=== PATIENT | female | born 1950 | race Two or more races ===

== ENCOUNTER 2022-11-15 07:57 | Inpatient (IN) | payer OTHER ==
[~2022-11-15] VITALS: Ht 160 cm; Wt 65.8 kg
[2022-11-15] MEDS ORDERED: GLUMETZA500 MG PO (08:52)
[2022-11-15] MEDS ORDERED: ATORVASTATIN CA20 MG PO (08:53)
[2022-11-15] MEDS ORDERED: GABAPE PO (08:53)
[2022-11-15] MEDS ORDERED: COZAAR100 MG PO (08:53)
[2022-11-15] MEDS ORDERED: DOXA PO (08:54)
[2022-11-15] MEDS ORDERED: CARVEDILOL6.25 M1 PO (08:54)
[2022-11-28] MEDS ORDERED: DOXAZOSIN MESYLA2 MG (10:04)
[2022-11-28] MEDS ORDERED: GABAPENTIN800 M1 (10:05)
[2022-11-28] MEDS ORDERED: AKTOB5 ML (10:05)
[2022-11-30] MEDS ORDERED: OXYC1TAB9 PO (06:45)
[2022-11-30] MEDS ORDERED: INTEGRA PLUS C1 EACH PO (06:45)
[2022-11-30] MEDS ORDERED: BACTRIM DS TAB1 EACH PO (06:45)
[2022-11-30] MEDS ORDERED: XARELTO10 MG PO (06:45)
== END 2022-11-30 14:12 | DRG 470 ==
LOC: ADM 09:15 → EDSTATUS 11-21 09:15 → SURH 11-21 09:15 → CIR.AMB 11-21 09:15 → SURH 11-21 10:30 → O/R 11-28 06:54 → SURH 11-28 06:54
PROVIDERS: ADMIT Orthopaedic Surgery Sports Medicine; ATTEND Orthopaedic Surgery Sports Medicine
PROC: 0SRD0J9 Replacement of Left Knee Joint with Synthetic Substitute, Cemented, Open Approach (ICD-10-PCS; principal; 2022-11-28 16:30)
DX: M17.12 Unilateral primary osteoarthritis, left knee (principal)

== ENCOUNTER 2022-11-25 06:26 | Outpatient (CLI) | payer OTHER ==
[~2022-11-25 06:26] MED LIST: ATORVASTATIN CA20 MG PO; CARVEDILOL6.25 M1 PO; COZAAR100 MG PO; DOXA PO; GABAPE PO; GLUMETZA500 MG PO
== END 2022-11-25 06:34 | disposition home or self-care (01) ==
LOC: LAB 06:26
PROVIDERS: ATTEND Orthopaedic Surgery Sports Medicine
DX: Z20.822 Contact with and (suspected) exposure to COVID-19 (principal)

== ENCOUNTER → 2023-10-02 08:00 | Outpatient (CLI) | payer OTHER ==
[~2023-10-02] VITALS: Ht 160 cm; Wt 68.9 kg
[~2023-10-02 08:00] MED LIST changes: +AKTOB5 ML; +BACTRIM DS TAB1 EACH PO; +CARVEDILOL12.5 M1; +CHLORTHALIDONE 25 MG; +DOXAZOSIN MESYLA2 MG; +GABAPENTIN800 M1; +INTEGRA PLUS C1 EACH PO; +OXYC1TAB9 PO; +XARELTO10 MG PO; +[UNRECOGNIZED DRUG - OTHER]
[2023-10-02 08:16] LABS: URINE APPEARANCE Clear; URINE BILIRRUBIN Negative (NEGATIVE); URINE BLOOD Small; URINE COLOR Yellow; URINE GLUCOSE Negative (NEGATIVE); URINE KETONE Negative (NEGATIVE); URINE LEUKOCYTE Trace; URINE NITRATE Negative; URINE PROTEIN Negative (NEGATIVE); URINE UROBILINOGEN 0.2 E.U./dl
[2023-10-02 08:18] LABS: URINE BACTERIA 18.8 uL (0.0-1933); URINE EPITHELIAL CELLS 3.2 uL (0.0-38.8); URINE RBC 69.7 uL (0.0-20.8)
[2023-10-02 08:21] LABS: HEMATOCRIT 36.2 % (36.0-45.00); MEAN CELL VOLUME 79.9 fL (80.00-100.00); MEAN CORPUSCULAR HEMOGLOBIN 26.4 pg (27.00-32.0); MEAN CORPUSCULAR HGB CONC 33.1 g/dl (32.0-36.0); PLATELET COUNT 288 K/uL (150-450); RED BLOOD COUNT 4.54 M/uL (4.00-6.00); RED CELL DISTRIBUTION WIDTH 16.5 % (11.5-14.5)
[2023-10-02 08:52] LABS: INR 0.96; PARTIAL THROMBOPLASTIN TIME 30.2 SECONDS (22.0-34.0); PROTHROMBIN TIME 10.1 SECONDS (9.0-11.5)
[2023-10-02 09:05] LABS: ALBUMIN 3.6 gm/dL (3.4-5.0); BILIRUBIN TOTAL 0.29 mg/dL (0.3-1.2); CALCIUM 9.3 mg/dL (8.5-10.1); CREATININE SERUM 0.82 mg/dL (0.55-1.02); GFR 68.53; GLOBULINA 3.7 G/DL (2.4-3.5); POTASSIUM 3.58 mEq/L (3.5-5.1); TOTAL PROTEIN 7.3 gm/dL (6.4-8.2)
== END | disposition home or self-care (01) ==
LOC: RAD 08:00 → SURH 10-09 09:15 → EDSTATUS 10-09 09:15 → SURH 10-09 10:30
PROVIDERS: ATTEND Orthopaedic Surgery Sports Medicine
DX: M17.11 Unilateral primary osteoarthritis, right knee (principal); Z20.822 Contact with and (suspected) exposure to COVID-19; D68.9 Coagulation defect, unspecified; Z01.818 Encounter for other preprocedural examination; I10 Essential (primary) hypertension

== ENCOUNTER 2023-10-20 09:11 | Outpatient (CLI) | payer OTHER | END 2023-10-20 09:20 | disposition home or self-care (01) | LOC: LAB 09:11 | DX: J34.89 Other specified disorders of nose and nasal sinuses (principal) ==

== ENCOUNTER 2024-02-21 08:00 | Inpatient (IN) | payer OTHER ==
[~2024-02-21] VITALS: Ht 160 cm; Wt 72.6 kg
[2024-02-21 10:47] LABS: PH,URINE 6.5 (5.0-8.0); URINE APPEARANCE Clear; URINE BILIRRUBIN Negative (NEGATIVE); URINE BLOOD NHT; URINE COLOR Yellow; URINE GLUCOSE Negative (NEGATIVE); URINE KETONE Negative (NEGATIVE); URINE LEUKOCYTE Negative; URINE NITRATE Negative; URINE PROTEIN Negative (NEGATIVE)
[2024-02-21 10:52] LABS: URINE BACTERIA 7.5 uL (0.0-1933); URINE EPITHELIAL CELLS 3.2 uL (0.0-38.8); URINE RBC 52.6 uL (0.0-20.8)
[2024-02-21 10:52] LABS: HEMATOCRIT 34.6 % (36.0-45.00); HEMOGLOBIN 11.2 g/dL (12.0-15.00); MEAN CELL VOLUME 80.7 fL (80.00-100.00); MEAN CORPUSCULAR HEMOGLOBIN 26.1 pg (27.00-32.0); MEAN CORPUSCULAR HGB CONC 32.3 g/dl (32.0-36.0); PLATELET COUNT 292 K/uL (150-450); RED BLOOD COUNT 4.29 M/uL (4.00-6.00); RED CELL DISTRIBUTION WIDTH 15.6 % (11.5-14.5)
[2024-02-21 11:06] LABS: URINE WBC 1.6 uL (0.0-23.2)
[2024-02-21 11:20] LABS: INR 0.97; PROTHROMBIN TIME 10.6 SECONDS (9.0-11.5)
[2024-02-21 11:25] LABS: ALBUMIN 3.6 gm/dL (3.4-5.0); BILIRUBIN TOTAL 0.27 mg/dL (0.3-1.2); CALCIUM 9.2 mg/dL (8.5-10.1); CREATININE SERUM 0.78 mg/dL (0.55-1.02); GFR 72.6; GLOBULINA 3.9 G/DL (2.4-3.5); POTASSIUM 4.39 mEq/L (3.5-5.1); TOTAL PROTEIN 7.5 gm/dL (6.4-8.2)
[2024-02-21 12:09] LABS: RH POSITIVE
[2024-03-04] MEDS ORDERED: CEFOXITIN SODIUM 2,000 MG VIAL IV ONE (13:15)
[2024-03-04] MEDS ORDERED: BUPIVACAINE HCL 30 ML VIAL IJ ONE (13:15)
[2024-03-04] MEDS ORDERED: TRANEXAMIC ACID 100MG/1ML (1000MG) AMPUL IV ONE ×2 (13:15)
[2024-03-04] MEDS ORDERED: KETOROLAC TROMETHAMINE 60 MG VIAL IM ONE (13:15)
[2024-03-04] MEDS ORDERED: LIDOCAINE HCL 1%/EPINEPHRINE 20ML VIAL IJ ONE (13:15)
[2024-03-04] MEDS ORDERED: MORPHINE SULFATE 4 MG/ML VIAL IV ONE ×2 (13:15→17:30)
[2024-03-04] MEDS ORDERED: POLYMYXIN B SULFATE 500,000 U VIAL IR ONE (13:30)
[2024-03-04] MEDS ORDERED: ONDANSETRON HCL 2 MG/ML VIAL IV PRN (14:30)
[2024-03-04] MEDS ORDERED: MORPHINE SULFATE 4 MG/ML CARTRIDGE IV PRN (14:30)
[2024-03-04] MEDS ORDERED: MORPHINE SULFATE 2 MG/ML CARTRIDGE IV NR (14:30)
[2024-03-04] MEDS ORDERED: SODIUM CHLORIDE 0.45 % 1,000 ML IV SCH (14:30)
[2024-03-04 15:36] LABS: HEMATOCRIT 31.6 % (36.0-45.00); HEMOGLOBIN 10.3 g/dL (12.0-15.00); RED BLOOD COUNT 3.97 M/uL (4.00-6.00)
[2024-03-04] MEDS ORDERED: CEFAZOLIN SODIUM 1,000 MG VIAL IV SCH (18:00)
[2024-03-04 21:00] VITALS: BP 170/85; O2SAT 95
[2024-03-04] MEDS ORDERED: GENTAMICIN SULFATE 40 MG/ML VIAL IV SCH (21:00)
[2024-03-05] VITALS: BP 144/80; O2SAT 95
[2024-03-05 06:29] LABS: HEMATOCRIT 29.9 % (36.0-45.00); HEMOGLOBIN 9.6 g/dL (12.0-15.00); MEAN CELL VOLUME 80.2 fL (80.00-100.00); MEAN CORPUSCULAR HEMOGLOBIN 25.7 pg (27.00-32.0); MEAN CORPUSCULAR HGB CONC 32.1 g/dl (32.0-36.0); PLATELET COUNT 235 K/uL (150-450); RED BLOOD COUNT 3.72 M/uL (4.00-6.00); RED CELL DISTRIBUTION WIDTH 14.8 % (11.5-14.5)
[2024-03-05 08:00] VITALS: BP 147/82; O2SAT 94
[2024-03-05] MEDS ORDERED: ACETAMINOPHEN WITH CODEINE 1 UDTAB TABLET PO PRN (08:00)
[2024-03-05] MEDS ORDERED: IRON FUM,PS/FOLIC/BCOMP,C NO.9 1 CAP CAPSULE PO SCH (09:00)
[2024-03-05] MEDS ORDERED: SENNA/DOCUSATE SODIUM 1 TAB TABLET PO SCH (09:00)
[2024-03-05] MEDS ORDERED: DOXAZOSIN MESYLATE 2 MG TABLET PO SCH (09:00)
[2024-03-05] MEDS ORDERED: RIVAROXABAN 10 MG TAB PO SCH (09:00)
[2024-03-05] MEDS ORDERED: LOSARTAN POTASSIUM 100 MG TABLET PO SCH (09:00)
[2024-03-05] MEDS ORDERED: MetFORMIN HCL 500 MG TABLET PO SCH (09:00)
[2024-03-05] MEDS ORDERED: BACITRACIN 28.35 GM OINT.TUBE TOP SCH (09:00)
[2024-03-05] MEDS ORDERED: ATORVASTATIN CALCIUM 20 MG TABLET PO SCH (09:00)
[2024-03-05] MEDS ORDERED: CARVEDILOL 12.5 MG TABLET PO SCH (09:00)
[2024-03-05 15:46] VITALS: BP 172/84; O2SAT 95
[2024-03-05] MEDS ORDERED: SULFAMETHOXAZOLE/TRIMETHOPRIM DS 1 TAB PO SCH (21:00)
[2024-03-06 00:18] VITALS: BP 172/80; O2SAT 95
[2024-03-06 05:04] VITALS: BP 167/97; O2SAT 96
[2024-03-06] MEDS ORDERED: Septra Ds Tablet PO (06:24)
[2024-03-06] MEDS ORDERED: INTEGRA PLUS C1 EACH PO (06:25)
[2024-03-06] MEDS ORDERED: XARELTO10 MG PO (06:25)
[2024-03-06] MEDS ORDERED: ACETAMINOPHEN-1 EAC2 PO (06:26)
[2024-03-06 07:18] LABS: HEMATOCRIT 28.6 % (36.0-45.00); HEMOGLOBIN 9.4 g/dL (12.0-15.00); MEAN CELL VOLUME 78.4 fL (80.00-100.00); MEAN CORPUSCULAR HEMOGLOBIN 25.8 pg (27.00-32.0); PLATELET COUNT 203 K/uL (150-450); RED BLOOD COUNT 3.65 M/uL (4.00-6.00); RED CELL DISTRIBUTION WIDTH 14.6 % (11.5-14.5)
[2024-03-06 07:49] VITALS: BP 150/76; O2SAT 97
== END 2024-03-06 13:40 | DRG 470 ==
LOC: O/R 03-04 06:00 → SURG-SUITE 03-04 08:00 → SURG 03-04 14:53
PROVIDERS: ADMIT Orthopaedic Surgery Sports Medicine; ATTEND Orthopaedic Surgery Sports Medicine
PROC: 0SRC0J9 Replacement of Right Knee Joint with Synthetic Substitute, Cemented, Open Approach (ICD-10-PCS; principal; 2024-03-04 09:30)
DX: M17.11 Unilateral primary osteoarthritis, right knee (principal)